=== PATIENT | male | born 1980 | race Caucasian/White ===

== ENCOUNTER 2024-03-20 10:09 | Outpatient (AMB) | payer MEDICAID, SELFPAY ==
--- OUTSIDE RECORDS SUMMARY | 2024-03-20 10:43 | XMS_ITS | Patient Health Record ---
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 Role Phone Daylin Mendez Unavailable [phone] Allergies Allergen (clinical drug ingredient) Drug/Non Drug Allergy documented on EMR Reaction Allergy Type Onset Date Status Penicillin hives,rash Drug Allergy Activ e Reason For Referral No Information Medications Medication SIG (Take, Route, Frequency, Duration) Notes Start Date End Date Status Benztropine Mesylate 0.5 MG TK 1 T PO BID PRN Oral for 30 Not-Taking OLANZapine 20 MG TK 1 AND 1/2 TS PO Q NIGHT Oral for 30 Not-Taking carBAMazepine 200 MG TK 2 TS PO BID Oral for 30 Not-Taking TEGretol Active ZyPREXA 5 MG 1 tablet Orally Once a day for 30 day(s) Active Cogentin Active clonazePAM 0.5 MG (Schedule IV Drug) T K 1 T PO BID PRA Oral for 30 Not-Taking Work Note . . . Patient seen in office today 04/13/22 and glass removed from right heel 04/13/2022 Active [place] Carbonate Ac tive Ciclopirox Olamine 0.77 % 1 application to affected area Externally Twice a day for 30 days 05/22/2012 Not-Taking Social History Tobacco Use: Social History Observation Description Date Details (start date - stop date) Former Smoker NA - NA Tobacco Use/Smoking Question Answer Notes Are you a: former smoker Alcohol Screen Question Answer Notes Did you have a drink containing alcohol in the p ast year? No Points 0 Interpretation Negative Tobacco use other than smoking: Question Answer Notes Are you an other tobacco user? No Problems Problem Type SNOMED Code ICD Code Onset Dates Problem Status W/U Status Risk Notes Problem Acquired hammer toe of left foot ([id number] [id number]) Other hammer toe(s) (acquired), left foot (M20.42) Active confirmed Plan Of Treatment Pending Test Test Name Order Date [id number] NAIL, 6 OR MORE 08/18/2017 [id number] NAIL, 6 OR MORE 11/08/2017 [id number] NAIL, 6 OR MORE 01/30/2018 [id number] Destruction, -01/30/2018 [id number] Destruction, 03-2711/08/2017 [id number] Destruction, 03-2708/18/2011 [id number] Destruction, 03-2705/22/2012 [id number] Destruction, 03-2708/18/2017 Insurance Providers Payer Name Payer Address Payer Phone Subscriber Number Group Number Insured Name Patient Relationship to Insured Coverage Start Date Coverage End Date [facility] [address] [place] [address] [id number] MONSE LANGLEY Child - Insured has Financial Responsibility Medical (General) History Medical History History ICD Code depression Anxiety Chicken pox Headaches/Migraines Surgical History Surgery Date(Month/Year)
[2024-03-20 10:57] VITALS: BP 110/80; PULSE 87; TEMP 37.2; O2SAT 97; BMI 33.6
--- NOTE | 2024-03-20 10:57 | AM.OFFWIN_ITS ---
Intake Vital Signs 03/20/24 10:57 Height 6 ft 1 in Weight 255 lb BMI 33.6 BP 110/80 Blood Pressure Location Lt brachial Position Sitting Pulse 87 Pulse Source Pulse Oximeter Temp 98.9 F Temp Source Oral Pulse Oximetry (%) 97 Oxygen Delivery Method Room Air Intake Visit Reasons: EP Blood in semen Intake Note: Pt is here today c/o blood semen Allergies Penicillins Allergy (Mild, Unverified 03/20/24 10:58) HIVES penicillin G Allergy (Unknown, Verified 03/20/24 10:58) hives HPI HPI Comments History of Present Illness Details History of Present Illness - The patient is a 43-year-old male pres enting with blood in his sperm and urinary issues. - Reports initial onset of blood in his sperm in early March during masturbation, managed with resting, but recurrence led to discontinuation of activity. - Absence of pain during urination and n o signs of urinary bleeding indicated. - Previous incident of masturbation date d back to November, long before present symptoms. - Approximately six months? duration of urinary dribbling, often requiring multiple attempts to manage post-micturition dribbling. - The patient reports nocturnal enuresis persisting a month, contributing to wetness and changes in clothing. - Lack of sexual activity reported over the last two years. - Persistent low back pain noted over pa st months. - He was a former smoker for 15 years an d currently vapes. Physical Exam General: Cooperative, healthy appearing, comfortable, no acute distress and well developed Orientation: Patient oriented x3 Limitations: No limitations Head: Normal to inspection Ears: Hearing grossly normal bilaterally Nose: Normal external nose present Face and sinus: normal facial exam Eyes: Appearance normal, both eyes and all related structures Neck: Normal visual inspection and Yes full ROM Respiratory: Normal respiratory effort and able to speak in complete sentences. Skin: No rashes or lesions noted Neuro: Patient oriented x3 Extremities: Normal to inspection Review of Systems Const All systems reviewed & are unremarkable except as noted in HPI and below Physical Exam Vital Signs: Last Vital Signs Temp 98.9 F 03/20/24 10:57 Pulse 87 03/20/24 10:57 BP 110/80 03/20/24 10:57 Pulse Ox 97 03/20/24 10:57 Oxygen Delivery Method Room Air 03/20/24 10:57 BMI result Body Mass Index 33.6 Results AMB Urinalysis, Automated UA Leukoctes 0 Noah/uL Last Edit by Jessica Villalobos CMA on 03/20/24 11:33 UA Nitrite Negative Last Edit by Jessica Villalobos CMA on 03/20/24 11:33 UA Urobilinogen 0.2 mg/dL Last Edit by Jessica Villalobos CMA on 03/20/24 11:33 UA Protein 0 mg/dL Last Edit by Jessica Villalobos CMA on 03/20/24 11:33 UA pH 6.0 Last Edit by Jessica Villalobos CMA on 03/20/24 11:33 UA Blood 0 Cruz/uL Last Edit by Jessica Villalobos CMA on 03/20/24 11:33 UA Specific [place] 1.015 Last Edit by Jessica Villalobos CMA on 03/20/24 11:33 UA Ketone Negative Last Edit by Jessica Villalobos CMA on 03/20/24 11:33 UA Bilirubin 0 mg/dL Last Edit by Jessica Villalobos CMA on 03/20/24 11:33 UA Glucose 0 mg/dL Last Edit by Jessica Villalobos CMA on 03/20/24 11:33 Results Reviewed Results Reviewed: Laboratory Last Values Urine pH (Auto) 6.0 03/20/24 11:31 Specific [place] (Auto) 1.015 03/20/24 11:31 Urine Protein (Auto) 0 mg/dL 03/20/24 11:31 Glucose (UA)(Auto) 0 mg/dL 03/20/24 11:31 Urine Ketones (Auto) Negative 03/20/24 11:31 Urine Blood (Auto) 0 Cruz/uL 03/20/24 11:31 Urine Nitrite (Auto) Negative 03/20/24 11:31 Urine Bilirubin (Auto) 0 mg/dL 03/20/24 11:31 Urine Urobilinogen (Auto) 0.2 mg/dL 03/20/24 11:31 Leukocyte Esterase (Auto) 0 Noah/uL 03/20/24 11:31 Assessment & Plan Assessment & Plan (1) Hematospermia: Code(s): R36.1 - Hematospermia Plan: The initial approach involves conducting a urinalysis to evaluate any microscopic blood or infection signs in the patient's urine, with further testing deferred as the patient declined STD testing. Focus will remain on identifying urinary tract or bladder control issues contributing to nocturnal enuresis and post-micturition dribbling. The patient has been informed of the planned urinalysis process, and further discussion will occur upon obtaining these results. UA negative for infection or blood. Urine culture sent. Pt was instructed to follow up with his PCP for further testing. He was also told this issue can be common but with his age, smoking history, bladder control issues, it warrants further investigation with a Urologist. He tells me he doesn't have a PCP right now. Encouraged pt to make an appt with PA[facility] at [facility] or [place]. If symptoms get dramatically worse, he should go to the ED. Patient was informed and verbally consented to the use of an ambient scribe for clinic note documentation during this visit. Orders: Orders Urine Culture Today N39.0 - Urinary tract infection, site not specified AMB Urinalysis Automated Today Z13.9 - Encounter for screening, unspecified Coding Level of Care Code Est Pt Level 4 (38212) Diagnoses Hematospermia R36.1
== END 2024-03-20 11:41 | disposition home or self-care (01) ==
PROVIDERS: PCP Internal Medicine; Visit Provider Physician Assistant
DX: R36.1 Hematospermia (principal); Z13.9 Encounter for screening, unspecified

== ENCOUNTER 2024-03-20 10:09 | Outpatient (REF) | payer MEDICAID, SELFPAY | END 2024-03-20 10:10 | disposition home or self-care (01) | LOC: HO.LAB 10:09 | PROVIDERS: PCP Internal Medicine; Visit Provider Physician Assistant | DX: N39.0 Urinary tract infection, site not specified (principal); R36.1 Hematospermia; Z13.9 Encounter for screening, unspecified | CPT/HCPCS: 81003; 87086; 99212 ==